=== PATIENT | male | born 1965 | race American Indian/Alaskan Native ===

== ENCOUNTER 2019-01-14 14:41 | Emergency (ER) | payer MEDICAID ==
[~2019-01-14] VITALS: Ht 175.3 cm; Wt 93.3 kg
[2019-01-14 14:46] VITALS: BP 134/79
[2019-01-14] MEDS ORDERED: ondansetron/PF 4mg/2ml inj IV ONE (15:10)
[2019-01-14] MEDS ORDERED: morphine 4 MG/ML inj SYRINge IV PRN (15:10)
[2019-01-14] MEDS ORDERED: normal saline 1000ML IV soln IVB ONE (15:10)
--- NOTE | 2019-01-14 17:12 | NUR ---
PARACENTESIS TUBE PULLED BY . 1350 ML FLUID DRAINED. BLEEDING CONTROLLED, DRESSING APPLIED.
[2019-01-14 17:36] LABS: BASOPHILS % (AUTO) 0.5 % (0-1); EOSINOPHILS # (AUTO) 0.2 X10'3 (0-0.9); EOSINOPHILS % (AUTO) 4.5 % (0-6); HEMATOCRIT 35.8 % (42.0-52.0); HEMOGLOBIN 12.4 g/dl (14.0-17.9); LYMPHOCYTES # (AUTO) 0.7 X10'3 (1.1-4.8); LYMPHOCYTES % (AUTO) 18.2 % (21-51); MEAN CORPUSCULAR HEMOGLOBIN 36.7 PG (27.0-31.0); MEAN CORPUSCULAR HGB CONC 34.6 g/dL (33.0-36.5); MEAN CORPUSCULAR VOLUME 106.2 FL (78-98); MONOCYTES # (AUTO) 0.6 X10'3 (0-0.9); MONOCYTES % (AUTO) 16.3 % (2-12); NEUTROPHILS # (AUTO) 2.4 X10'3 (1.8-7.7); NEUTROPHILS % (AUTO) 60.5 % (42-75); PLATELET COUNT 116 X10'3 (140-440); RED BLOOD COUNT 3.38 X10'6 (4.70-6.10); RED CELL DISTRIBUTION WIDTH 14.9 % (11.5-14.5); WHITE BLOOD COUNT 3.9 X10'3 (4.5-11.0)
[2019-01-14 17:47] LABS: BF MESOTHELIAL CELLS FEW; BF RBC COUNT 1940 /CU MM; BF WBC COUNT 90 /CU MM (0-1000); BFAPPEAR CLOUDY; BFCOLOR YELLOW; BFVOLUME 19 ML; LYMPHOCYTES,BODY FLUID 80 %; MONOCYTES,BODY FLUID 8 %; NEUTROPHILS,BODY FLUID 12 %
[2019-01-14 17:48] LABS: ALANINE AMINOTRANSFERASE 32 U/L (12-78); ALBUMIN 1.3 G/DL (3.4-5.0); ALBUMIN/GLOBULIN RATIO 0.3 (1.1-1.5); ALKALINE PHOSPHATASE 144 IU/L (46-116); ANION GAP 7 (8-16); ASPARTATE AMINO TRANSFERASE 49 U/L (10-37); BILIRUBIN,TOTAL 0.8 MG/DL (0.1-1.0); BLOOD UREA NITROGEN 10 MG/DL (7-18); BUN/CREATININE RATIO 15.9 (5.4-32.0); CALCIUM 7.1 MG/DL (8.5-10.1); CHLORIDE 109 MMOL/L (99-107); CREATININE 0.63 MG/DL (0.60-1.10); LIPASE 90 U/L (73-393); POTASSIUM 3.7 MMOL/L (3.5-5.1); SODIUM 141 MMOL/L (135-145); TOTAL CARBON DIOXIDE 24.8 MMOL/L (24-32); TOTAL PROTEIN 5.9 G/DL (6.4-8.2); eGFR > 90 ML/MIN
[2019-01-14 17:49] LABS: GLUCOSE 110 MG/DL (70-104)
[2019-01-14 17:50] LABS: INR 1.6 INR; PROTHROMBIN TIME 15.7 SECONDS (9.0-12.0)
[2019-01-14 17:58] LABS: LARGE PLATELETS FEW; PLATELET ESTIMATE DECREASED
[2019-01-14 18:51] LABS: CLARITY,URINE CLEAR (Clear); COLOR,URINE YELLOW (Yellow); GLUCOSE, URINE NEGATIVE (Neg); KETONES,URINE TRACE mg/dl (Neg); LEUKOCYTE ESTERASE ,URINE NEGATIVE (Neg); NITRITES, URINE NEGATIVE (Neg); OCCULT BLOOD,URINE NEGATIVE (Neg); PROTEIN,URINE TRACE mg/dl (Neg)
[2019-01-14 18:53] LABS: UA COLLECTION TYPE CLN CATCH MIDSTREAM
[2019-01-14 19:17] LABS: CAL OXALATE CRYSTALS 3+ /HPF (NEGATIVE); MUCUS STRANDS MANY /LPF (Neg); SQUAMOUS EPITHELIAL CELL,UR FEW /LPF (FEW); WBC,URINE 0-4 /HPF (0-4)
[2019-01-14 19:18] LABS: BACTERIA,URINE FEW /HPF (Neg); RBC,URINE 0-2 /HPF (0-2)
[2019-01-14] MEDS ORDERED: LEVO500T2 PO (19:35)
[2019-01-14] MEDS ORDERED: SPIR50TA5 PO (21:53)
[2019-01-14] MEDS ORDERED: FURO-149 PO (21:53)
== END 2019-01-14 23:00 | disposition home or self-care (01) ==
LOC: ER 14:42
DX: R18.8 Other ascites (principal); L03.311 Cellulitis of abdominal wall; K72.90 Hepatic failure, unspecified without coma; Z79.899 Other long term (current) drug therapy
CPT/HCPCS: 36415; 49083; 71045; 74176; 80053; 81001; 83690; 84145; 85025; 85610; 87070; 87075; 89051; 96374; 96375; 99285; J2270; J2405; J7030